=== PATIENT | male | born 1975 | race Caucasian/White ===

== ENCOUNTER 2021-04-14 11:04 | Emergency (ER) | payer BC, MEDICAID, OTHER ==
[~2021-04-14] VITALS: Ht 175.3 cm; Wt 81.8 kg
[~2021-04-14 11:04] MED LIST: HYDR-4383 PO
[2021-04-14 11:28] VITALS: BP 122/97
[2021-04-14] MEDS ORDERED: ondansetron 4mg rapidly disintigrating tab PO ONE (11:35)
[2021-04-14] MEDS ORDERED: acetaminophen 325mg tablet PO ONE (11:35)
[2021-04-14 13:17] LABS: BASOPHILS % (AUTO) 0.3 % (0-1); EOSINOPHILS % (AUTO) 0.1 % (0-6); HEMATOCRIT 43.3 % (42.0-52.0); LYMPHOCYTES # (AUTO) 0.6 X10'3 (1.1-4.8); LYMPHOCYTES % (AUTO) 14.5 % (21-51); MEAN CORPUSCULAR HEMOGLOBIN 31.5 PG (27.0-31.0); MEAN CORPUSCULAR HGB CONC 34.6 g/dL (33.0-36.5); MEAN CORPUSCULAR VOLUME 91.2 FL (78-98); MEAN PLATELET VOLUME 7.7 FL (7.4-10.4); MONOCYTES # (AUTO) 0.8 X10'3 (0-0.9); MONOCYTES % (AUTO) 18.7 % (2-12); NEUTROPHILS # (AUTO) 2.8 X10'3 (1.8-7.7); NEUTROPHILS % (AUTO) 66.4 % (42-75); PLATELET COUNT 158 X10'3 (140-440); RED BLOOD COUNT 4.75 X10'6 (4.70-6.10); RED CELL DISTRIBUTION WIDTH 13.1 % (11.5-14.5); WHITE BLOOD COUNT 4.2 X10'3 (4.5-11.0)
[2021-04-14 13:32] LABS: ALANINE AMINOTRANSFERASE 21 U/L (12-78); ALBUMIN 4.1 G/DL (3.4-5.0); ALBUMIN/GLOBULIN RATIO 1.1 (1.1-1.5); ALKALINE PHOSPHATASE 47 IU/L (46-116); ANION GAP 13 (8-16); ASPARTATE AMINO TRANSFERASE 19 U/L (10-37); BILIRUBIN,TOTAL 0.7 MG/DL (0.1-1.0); BLOOD UREA NITROGEN 11 MG/DL (7-18); BUN/CREATININE RATIO 10.2 (5.4-32.0); CALCIUM 8.5 MG/DL (8.5-10.1); CHLORIDE 102 MMOL/L (99-107); CREATININE 1.08 MG/DL (0.60-1.10); GLUCOSE 106 MG/DL (70-104); POTASSIUM 3.6 MMOL/L (3.5-5.1); SODIUM 139 MMOL/L (135-145); TOTAL CARBON DIOXIDE 24.3 MMOL/L (24-32); TOTAL PROTEIN 7.7 G/DL (6.4-8.2); eGFR 74 ML/MIN
[2021-04-14 13:54] LABS: MONOCYTES % (MANUAL) 17.5 % (2-12); NEUTROPHILS % (MANUAL) 58.5 % (42-75); TOTAL CELLS COUNTED 200
[2021-04-14 13:55] LABS: PLATELET ESTIMATE NORMAL; SMUDGE CELLS 1+
== END 2021-04-14 13:39 | disposition left against medical advice (07) ==
LOC: ER 11:04
DX: U07.1 COVID-19 (principal); Z88.2 Allergy status to sulfonamides
CPT/HCPCS: 36415; 71045; 80053; 85007; 85025; 87635; 99284; C9803

== ENCOUNTER 2021-07-23 21:26 | Emergency (ER) | payer OTHER ==
[~2021-07-23] VITALS: Ht 175.3 cm; Wt 79.0 kg
[2021-07-24] MEDS ORDERED: proparacaine 0.5% ophthalmic drops 15ml EACHEYE ONE (00:10)
[2021-07-24] MEDS ORDERED: ERYT1OIN6 LEFTEYE (00:25)
--- NOTE | 2021-07-24 01:08 | NUR ---
PATIENT WAS TREATED BY ER MD, F/B REMOVED. DISCH TO HOME WITH FLU INST AND RX. NO DISTRESS.
[2021-07-24 01:09] VITALS: BP 145/102
== END 2021-07-24 01:12 | disposition home or self-care (01) ==
LOC: ER 21:27
DX: T15.02XA Foreign body in cornea, left eye, initial encounter (principal); H57.12 Ocular pain, left eye; Z98.890 Other specified postprocedural states; Z88.2 Allergy status to sulfonamides; Z79.2 Long term (current) use of antibiotics; X58.XXXA Exposure to other specified factors, initial encounter; Y93.89 Activity, other specified; Y92.89 Other specified places as the place of occurrence of the external cause; Y99.8 Other external cause status
CPT/HCPCS: 65220; 99284

== ENCOUNTER 2023-12-21 08:33 | Emergency (ER) | payer MEDICAID, OTHER ==
[~2023-12-21] VITALS: Ht 175.3 cm; Wt 74.0 kg
[2023-12-21 08:45] VITALS: BP 133/96; PULSE 90; RESP 16; TEMP 97.6; O2SAT 100
[2023-12-21] MEDS: LIDOcaine 1% 30ml preserv. free vial IJ ONE (10:07)
[2023-12-21] MEDS ORDERED: CEPH-585 PO (11:12)
== END 2023-12-21 11:14 | disposition home or self-care (01) ==
LOC: ER 08:33
DX: S61.243A Puncture wound with foreign body of left middle finger without damage to nail, initial encounter (principal); L72.3 Sebaceous cyst; X58.XXXA Exposure to other specified factors, initial encounter; Y93.89 Activity, other specified; Y92.89 Other specified places as the place of occurrence of the external cause; Y99.8 Other external cause status
CPT/HCPCS: 64450; 99284; J3490; A6449